=== PATIENT | male | born 1935 ===

== ENCOUNTER 2023-09-13 21:14 | Inpatient (IN) ==
[2023-09-13] MEDS: Lidocaine PATCH 5% PATCH TRANSDERM ONE (22:07)
[2023-09-13] MEDS: fentaNYL 100 mcg/2 ml 50 MCG/ML VIAL IV SLOW PU ONE (22:48)
[2023-09-13 23:39] LABS: ABS Monocytes 0.5 10^3/uL (0.0-1.1); ABS Neutrophils 10.2 10^3/uL (1.5-7.6); ABS Nucleated RBC 0.01 10^3/ul; Eosinophil % 0.4 %; Hematocrit 32.7 % (38-53); Hemoglobin 11.1 g/dL (13.2-16.3); Lymphocyte % 8.4 %; Mean Corpuscular Hemoglobin 30.9 pg (27-33); Mean Corpuscular Hgb Conc 33.9 g/dL (31-36); Mean Corpuscular Volume 91.3 fL (80-97); Mean Platelet Volume 8.2 fL (7.5-11.2); Platelet Count 256 10^3/uL (150-450); Red Blood Count 3.58 10^6/uL (4.06-5.63); Red Cell Distribution Width 13.8 % (12-17); White Blood Count 11.8 10^3/uL (3.6-10.2)
[2023-09-13 23:45] LABS: Activated Partial Thrombo Time 32.1 seconds (26.0-38.0); INR 1.34 (0.83-1.13)
[2023-09-14] MEDS: Morphine 2 MG/ML SYRINGE IV PRN (00:18)
[2023-09-14] MEDS: Ondansetron 4 mg VIAL 2 MG/ML 2 ml VIAL IV PRN (00:18)
[2023-09-14] MEDS: Acetaminophen IV 1 GM/100ML 1,000 MG/100 ML BAG IV SCH (00:18)
[2023-09-14 00:21] LABS: Albumin 4.1 g/dL (3.2-5.2); Albumin/Globulin Ratio 1.9 (1-3); Calcium 9.2 mg/dL (8.6-10.3); Calcium 9.3 mg/dL (8.6-10.3); Creatinine, Serum 1.26 mg/dL (0.67-1.17); Creatinine, Serum 1.3 mg/dL (0.67-1.17); Globulin 2.2 g/dL (2-4); Potassium 4.2 mmol/L (3.5-5.0); Potassium 4.3 mmol/L (3.5-5.0); Total Bilirubin 0.3 mg/dL (0.2-1.0); Total Protein 6.3 g/dL (6.4-8.9); eGFR CKD-EPI 53.2 (>60); eGFR CKD-EPI 55.2 (>60)
[2023-09-14 05:47] LABS: ABS Basophils 0.1 10^3/uL (0.0-0.1); ABS Lymphocytes 1.2 10^3/uL (1.0-4.8); ABS Monocytes 0.9 10^3/uL (0.0-1.1); ABS Neutrophils 8.6 10^3/uL (1.5-7.6); Eosinophil % 0.3 %; Hemoglobin 10.7 g/dL (13.2-16.3); Mean Corpuscular Hemoglobin 30.7 pg (27-33); Mean Corpuscular Hgb Conc 33.5 g/dL (31-36); Mean Corpuscular Volume 91.7 fL (80-97); Platelet Count 247 10^3/uL (150-450); Red Blood Count 3.49 10^6/uL (4.06-5.63); Red Cell Distribution Width 13.7 % (12-17); White Blood Count 10.7 10^3/uL (3.6-10.2)
[2023-09-14 06:12] LABS: Creatinine, Serum 1.32 mg/dL (0.67-1.17); Potassium 4.4 mmol/L (3.5-5.0); eGFR CKD-EPI 52.2 (>60)
[2023-09-14 06:19] LABS: Magnesium 1.7 mg/dL (1.9-2.7)
[2023-09-14] MEDS: Magnesium Sulfate 2 gm BAG 2 GM/50 ML BAG IVPB ONE (08:03)
[2023-09-14] MEDS: Enoxaparin 40 MG/0.4 ML SYR SUBCUT SCH (12:21)
[2023-09-15 05:56] LABS: ABS Lymphocytes 0.3 10^3/uL (1.0-4.8); ABS Monocytes 0.9 10^3/uL (0.0-1.1); Eosinophil % 0.1 %; Hematocrit 32.5 % (38-53); Hemoglobin 10.8 g/dL (13.2-16.3); Lymphocyte % 1.9 %; Mean Corpuscular Hemoglobin 30.7 pg (27-33); Mean Corpuscular Hgb Conc 33.3 g/dL (31-36); Mean Corpuscular Volume 92.3 fL (80-97); Mean Platelet Volume 8.6 fL (7.5-11.2); Platelet Count 227 10^3/uL (150-450); Red Blood Count 3.52 10^6/uL (4.06-5.63); Red Cell Distribution Width 13.9 % (12-17); White Blood Count 13.2 10^3/uL (3.6-10.2)
[2023-09-15 06:23] LABS: Calcium 8.8 mg/dL (8.6-10.3); Creatinine, Serum 1.31 mg/dL (0.67-1.17); eGFR CKD-EPI 52.7 (>60)
[2023-09-16 06:19] LABS: ABS Basophils 0.1 10^3/uL (0.0-0.1); ABS Eosinophils 0.2 10^3/uL (0.0-0.5); ABS Lymphocytes 0.6 10^3/uL (1.0-4.8); ABS Monocytes 0.8 10^3/uL (0.0-1.1); ABS Neutrophils 10.1 10^3/uL (1.5-7.6); ABS Nucleated RBC 0.01 10^3/ul; Eosinophil % 1.6 %; Hematocrit 32.1 % (38-53); Hemoglobin 10.7 g/dL (13.2-16.3); Lymphocyte % 5.3 %; Mean Corpuscular Hemoglobin 30.8 pg (27-33); Mean Corpuscular Hgb Conc 33.2 g/dL (31-36); Mean Corpuscular Volume 92.6 fL (80-97); Mean Platelet Volume 8.4 fL (7.5-11.2); Nucleated Red Blood Cells % 0.1 %/100WBC (0.0-0.8); Platelet Count 208 10^3/uL (150-450); Red Blood Count 3.47 10^6/uL (4.06-5.63); Red Cell Distribution Width 14.1 % (12-17); White Blood Count 11.8 10^3/uL (3.6-10.2)
[2023-09-16 06:30] LABS: INR 1.26 (0.83-1.13)
[2023-09-16] MEDS ORDERED: Lidocaine 2% PF 5 ML VIAL ONE (06:44)
[2023-09-16] MEDS ORDERED: Dexamethasone IV 4 MG/ML VIAL 1 ml VIAL ONE (06:44)
[2023-09-16] MEDS ORDERED: Ondansetron 4 mg VIAL 2 MG/ML 2 ml VIAL ONE (06:44)
[2023-09-16] MEDS ORDERED: Rocuronium 50 mg VIAL 10 mg/ml 5 ml VIAL (50 mg) ONE (06:47)
[2023-09-16 06:57] LABS: Anion Gap 8 mmol/L (2-16); Blood Urea Nitrogen 38 mg/dL (6-24); CO2 Carbon Dioxide 28 mmol/L (22-32); Calcium 9.1 mg/dL (8.6-10.3); Chloride 103 mmol/L (101-111); Creatinine, Serum 1.23 mg/dL (0.67-1.17); Glucose 139 mg/dL (70-100); Magnesium 2.1 mg/dL (1.9-2.7); Potassium 4.7 mmol/L (3.5-5.0); Sodium 139 mmol/L (135-145); eGFR CKD-EPI 56.8 (>60)
[2023-09-16] MEDS ORDERED: fentaNYL 100 mcg/2 ml 50 MCG/ML VIAL ONE (07:52)
[2023-09-16] MEDS ORDERED: Phenylephrine IV 10 MG/ML 1 ml VIAL ONE (07:52)
[2023-09-16] MEDS ORDERED: Propofol 10 MG/ML 20 ML BTL ONE (07:55)
[2023-09-16] MEDS ORDERED: Naloxone 0.4 mg VIAL 0.4 mg/ml 1 ml VIAL IV PRN (08:02)
[2023-09-16] MEDS ORDERED: Bupivacaine 0.5% SDV PF 30ML VIAL ONE (08:48)
[2023-09-16] MEDS ORDERED: ceFAZolin 2 GM PREMIX 2 GM/50 ML BAG ONE (09:02)
[2023-09-16] MEDS ORDERED: Etomidate 20 mg/10 ml 2 MG/ML 10 ml VIAL ONE (09:42)
[2023-09-16] MEDS ORDERED: KETAMINE HCL 10 MG/ML 20 ml VIAL (200 MG) ONE (09:43)
[2023-09-16] MEDS ORDERED: Acetaminophen IV 1 GM/100ML 1,000 MG/100 ML BAG IV ONE (10:02)
[2023-09-16] MEDS ORDERED: HYDROmorphone 1 MG/1 ML SYRINGE ONE (11:46)
[2023-09-16] MEDS: HYDROmorphone 1 MG/1 ML SYRINGE IV PRN (11:48)
[2023-09-16 12:20] LABS: Hematocrit 31.7 % (38-53); Hemoglobin 10.4 g/dL (13.2-16.3)
[2023-09-16] MEDS: Lactated Ringers 1000 ml BAG 1,000 ML IV SCH (14:21)
[2023-09-16] MEDS: Lactated Ringers 1000 ml BAG 1,000 ML IV ONE (14:55)
[2023-09-16] MEDS ORDERED: Ondansetron 4 mg VIAL 2 MG/ML 2 ml VIAL IV PRN (14:56)
[2023-09-16] MEDS: Acetaminophen IV 1 GM/100ML 1,000 MG/100 ML BAG IV SCH (15:58)
[2023-09-16] MEDS: ceFAZolin 1 GM ADVAN 1 GM in NS 0.9% 50 ML 50 ML IVPB SCH (17:22)
[2023-09-16 19:56] LABS: % Iron Saturation 6 % (15-55); .Transferrin 226 mg/dL (203-362); Iron < 20 ug/dL (50-212); Total Iron Binding Capacity 316 mcg/dL (250-450); Unsaturated Iron Binding 296 ug/dL
[2023-09-16 20:18] LABS: Ferritin 78.7 ng/mL (24-336)
[2023-09-16 20:22] LABS: Folate 9.65 ng/mL (5.90-24.80)
[2023-09-16 20:23] LABS: Vitamin B12 526 pg/mL (180-914)
[2023-09-17] MEDS: Haloperidol 5 mg/ml SDV IV/IM 5 MG/ML AMP IV SLOW PU ONE (04:01)
[2023-09-17 06:19] LABS: ABS Lymphocytes 0.7 10^3/uL (1.0-4.8); ABS Monocytes 1.2 10^3/uL (0.0-1.1); ABS Neutrophils 10.5 10^3/uL (1.5-7.6); ABS Nucleated RBC 0.01 10^3/ul; Eosinophil % 0.2 %; Hematocrit 30.9 % (38-53); Hemoglobin 10.2 g/dL (13.2-16.3); Lymphocyte % 5.8 %; Mean Corpuscular Hgb Conc 33.1 g/dL (31-36); Mean Corpuscular Volume 93.7 fL (80-97); Mean Platelet Volume 8.8 fL (7.5-11.2); Nucleated Red Blood Cells % 0.1 %/100WBC (0.0-0.8); Platelet Count 217 10^3/uL (150-450); Red Cell Distribution Width 13.9 % (12-17); White Blood Count 12.4 10^3/uL (3.6-10.2)
[2023-09-17 06:34] LABS: Calcium 9.1 mg/dL (8.6-10.3); Creatinine, Serum 1.23 mg/dL (0.67-1.17); Potassium 4.2 mmol/L (3.5-5.0); eGFR CKD-EPI 56.8 (>60)
[2023-09-17] MEDS ORDERED: Enoxaparin 40 MG/0.4 ML SYR SUBCUT SCH (12:00)
[2023-09-17] MEDS: Polyethylene Glycol 3350 17 GM PACKET PO SCH (19:19)
[2023-09-18 07:02] LABS: ABS Eosinophils 0.3 10^3/uL (0.0-0.5); ABS Monocytes 1.2 10^3/uL (0.0-1.1); ABS Neutrophils 7.2 10^3/uL (1.5-7.6); Eosinophil % 3.3 %; Hematocrit 25.4 % (38-53); Hemoglobin 8.7 g/dL (13.2-16.3); Lymphocyte % 10.1 %; Mean Corpuscular Hemoglobin 31.5 pg (27-33); Mean Corpuscular Hgb Conc 34.3 g/dL (31-36); Mean Corpuscular Volume 91.9 fL (80-97); Mean Platelet Volume 8.7 fL (7.5-11.2); Platelet Count 190 10^3/uL (150-450); Red Blood Count 2.76 10^6/uL (4.06-5.63); Red Cell Distribution Width 13.9 % (12-17); White Blood Count 9.7 10^3/uL (3.6-10.2)
[2023-09-18 07:13] LABS: Calcium 8.6 mg/dL (8.6-10.3); Creatinine, Serum 1.19 mg/dL (0.67-1.17); Potassium 4.1 mmol/L (3.5-5.0); eGFR CKD-EPI 59.1 (>60)
[2023-09-18] MEDS ORDERED: Magnesium Hydroxide LIQ 30 ML UDC PO PRN (16:11)
[2023-09-18] MEDS: Iron Sucrose 200 MG in NS 0.9% 100 ml BAG 100 ML IVPB ONE (20:15)
[2023-09-18] MEDS: Magnesium Hydroxide LIQ 30 ML UDC PO SCH (20:16)
[2023-09-19 06:08] LABS: ABS Basophils 0.2 10^3/uL (0.0-0.1); ABS Eosinophils 0.4 10^3/uL (0.0-0.5); ABS Lymphocytes 0.9 10^3/uL (1.0-4.8); ABS Monocytes 0.9 10^3/uL (0.0-1.1); ABS Neutrophils 8.1 10^3/uL (1.5-7.6); ABS Nucleated RBC 0.01 10^3/ul; Eosinophil % 3.7 %; Hematocrit 26.3 % (38-53); Lymphocyte % 8.5 %; Mean Corpuscular Hemoglobin 31.3 pg (27-33); Mean Corpuscular Hgb Conc 34.1 g/dL (31-36); Mean Corpuscular Volume 91.6 fL (80-97); Mean Platelet Volume 8.5 fL (7.5-11.2); Platelet Count 221 10^3/uL (150-450); Red Blood Count 2.87 10^6/uL (4.06-5.63); Red Cell Distribution Width 14.2 % (12-17); White Blood Count 10.5 10^3/uL (3.6-10.2)
[2023-09-19 06:26] LABS: Calcium 8.8 mg/dL (8.6-10.3); Creatinine, Serum 1.15 mg/dL (0.67-1.17); Potassium 4.4 mmol/L (3.5-5.0); eGFR CKD-EPI 61.6 (>60)
[2023-09-19] MEDS: dilTIAZem 30 MG TAB PO SCH (13:00)
[2023-09-19] MEDS: Senna TAB 8.6 mg TAB PO PRN (20:16)
[2023-09-20 21:43] LABS: Rapid COVID-19 Molecular Undetected (Undetected)
[2023-09-21] MEDS ORDERED: Mineral Oil ENEMA 118 ML/BOTTLE BOTTLE PR PRN (08:55)
[2023-09-21 10:51] LABS: ABS Lymphocytes 0.8 10^3/uL (1.0-4.8); ABS Monocytes 1.1 10^3/uL (0.0-1.1); ABS Neutrophils 11.8 10^3/uL (1.5-7.6); ABS Nucleated RBC 0.01 10^3/ul; Eosinophil % 0.3 %; Hematocrit 31.7 % (38-53); Hemoglobin 10.2 g/dL (13.2-16.3); Lymphocyte % 5.8 %; Mean Corpuscular Hemoglobin 30.3 pg (27-33); Mean Corpuscular Hgb Conc 32.3 g/dL (31-36); Mean Corpuscular Volume 93.8 fL (80-97); Mean Platelet Volume 8.5 fL (7.5-11.2); Nucleated Red Blood Cells % 0.1 %/100WBC (0.0-0.8); Platelet Count 371 10^3/uL (150-450); Red Blood Count 3.38 10^6/uL (4.06-5.63); Red Cell Distribution Width 14.5 % (12-17); White Blood Count 13.8 10^3/uL (3.6-10.2)
[2023-09-21] MEDS: Lactulose 30 ml UDC PO PRN (11:23)
[2023-09-21 11:30] LABS: Calcium 9.4 mg/dL (8.6-10.3); Creatinine, Serum 0.9 mg/dL (0.67-1.17); Potassium 4.3 mmol/L (3.5-5.0); eGFR CKD-EPI 82.7 (>60)
[2023-09-21 15:07] LABS: Urine Appearance Clear; Urine Bilirubin Negative (Negative); Urine Blood 2+ (Negative); Urine Color Yellow; Urine Glucose Negative (Negative); Urine Ketones Negative (Negative); Urine Nitrite Negative (Negative); Urine Protein 1+ (>=30 mg/dL) (Negative); Urine Specific Gravity 1.025 (1.002-1.030); Urine Urobilinogen Negative (Negative)
[2023-09-21 15:34] LABS: Urine Bacteria Absent /HPF (Absent); Urine Red Blood Cell 3+(>10/hpf) /HPF (0-Trace); Urine Squamous Epithelial Cell Present /HPF (Absent); Urine White Blood Cell Trace(0-5/hpf) /HPF (0-Trace)
[2023-09-21] MEDS: Glycerin ADULT 2.4 gm SUPP PR ONE (15:54)
[2023-09-21] MEDS ORDERED: Atropine 1% (ORAL/SL) 15 ML BTL SL PRN (16:42)
[2023-09-21] MEDS: Lactated Ringers 1000 ml BAG 1,000 ML IV SCH (17:47)
[2023-09-21] MEDS: Morphine ORAL CONCENTRATE 5 MG/0.25 ML ORAL.SYRIN PO PRN (17:57)
[2023-09-21 18:10] VITALS: BP 132/63
[2023-09-22 03:41] LABS: Urine Appearance Turbid; Urine Bilirubin Negative (Negative); Urine Blood 3+ (Negative); Urine Color Yellow; Urine Glucose Negative (Negative); Urine Ketones Negative (Negative); Urine Nitrite Negative (Negative); Urine Protein 1+ (>=30 mg/dL) (Negative); Urine Specific Gravity 1.024 (1.002-1.030); Urine Urobilinogen Negative (Negative)
[2023-09-22 05:45] LABS: Hematocrit 28.2 % (38-53); Hemoglobin 9.3 g/dL (13.2-16.3); Mean Corpuscular Hemoglobin 30.9 pg (27-33); Mean Corpuscular Hgb Conc 33.1 g/dL (31-36); Mean Corpuscular Volume 93.2 fL (80-97); Mean Platelet Volume 8.6 fL (7.5-11.2); Platelet Count 332 10^3/uL (150-450); Red Blood Count 3.02 10^6/uL (4.06-5.63); Red Cell Distribution Width 14.3 % (12-17); White Blood Count 16.5 10^3/uL (3.6-10.2)
[2023-09-22 06:49] LABS: Calcium 8.7 mg/dL (8.6-10.3); Creatinine, Serum 1.07 mg/dL (0.67-1.17); Potassium 4.6 mmol/L (3.5-5.0); eGFR CKD-EPI 67.2 (>60)
[2023-09-22 06:58] LABS: ABS Lymphocytes 0.9 10^3/uL (1.0-4.8); ABS Neutrophils 13.6 10^3/uL (1.5-7.6); ABS Nucleated RBC 0.01 10^3/ul; Eosinophil % 0.1 %; Lymphocyte % 5.4 %; Nucleated Red Blood Cells % 0.1 %/100WBC (0.0-0.8); RBC Morphology Normal (Normal)
[2023-09-22] MEDS ORDERED: Morphine ORAL.SOLN 10 mg 2 mg/ml UDC 5 ml (10 mg) PO PRN (11:07)
[2023-09-22] MEDS ORDERED: Ondansetron ODT 4 mg TAB 4 MG TAB SL PRN (11:08)
[2023-09-22] MEDS: Morphine ORAL CONCENTRATE 5 MG/0.25 ML ORAL.SYRIN SL SCH (11:38)
[2023-09-22] MEDS: Morphine ORAL CONCENTRATE 5 MG/0.25 ML ORAL.SYRIN PO PRN (12:56)
[2023-09-22] MEDS ORDERED: Lorazepam PYXIS KEY PRN (14:12)
[2023-09-22] MEDS: LORazepam 2 mg VIAL 1 ml IV PUSH ONE (14:38)
[2023-09-22] MEDS: Morphine ORAL CONCENTRATE 5 MG/0.25 ML ORAL.SYRIN SL PRN (17:22)
[2023-09-23] MEDS: Glycerin ADULT 2.4 gm SUPP PR SCH (07:56)
[2023-09-23] MEDS: Haloperidol LIQ ORALSYR 2 MG/ML PO PRN (15:47)
[2023-09-23] MEDS: Morphine ORAL CONCENTRATE 5 MG/0.25 ML ORAL.SYRIN SL SCH ×2 (16:20→16:30)
== END 2023-09-24 00:35 | disposition expired | DRG 521 ==
LOC: ED 21:14 → EDHOLD 23:42 → SUATTDRO 23:42 → SSU 09-14 08:19
PROVIDERS: ADMIT Internal Medicine; ATTEND Internal Medicine